=== PATIENT | female | born 1930 | race Caucasian/White ===

== ENCOUNTER 2018-02-17 16:52 | Emergency (ER) | payer MEDICARE, MEDICAID ==
[~2018-02-17] VITALS: Ht 157.5 cm; Wt 40.8 kg
[2018-02-17 16:55] VITALS: BP 132/98
--- NOTE | 2018-02-17 17:19 | Emergency Room Report ---
History of Present Illness General Chief Complaint: Upper Extremity Injury Present Illness HPI 87-year-old female presents to the emergency department brought by ambulance from [facility] facility for left wrist pain status post fall from bed. Patient denies hitting her head she states that she fell yesterday as well. Patient reports minimal pain rated at 2/10 in severity. exacerbated with palpation. She reports some swelling to the left wrist. She states that she typically requires assistance with standing and ambulating as she does not have good balance. Denies CP, Palpitations, paresthesias, or a sudden severe headache. Allergies: Coded Allergies: No Known Allergies (Unverified , 02/17/18) Patient History Past Medical History: see triage record Past Surgical History: none Pertinent Family History: none Now: No Reviewed Nursing Documentation: PMH: Agreed; PSxH: Agreed Review of Systems All Other Systems: negative except mentioned in HPI Physical Exam Vital Signs Date Time Temp Pulse Resp B/P (MAP) Pulse Ox O2 Delivery O2 Flow Rate FiO2 02/17/18 16:43 97.8 89 20 132/98 99 97.9 02/17/18 16:55 Room Air Sp02 EP Interpretation: reviewed, normal General Appearance: no apparent distress, alert, GCS 15, non-toxic Head: normocephalic, atraumatic Eyes: bilateral eye normal inspection, bilateral eye PERRL ENT: hearing grossly normal, normal voice Neck: full range of motion Respiratory: chest non-tender, lungs clear, normal breath sounds, speaking full sentences Cardiovascular #1: regular rate, rhythm, no edema, normal capillary refill Cardiovascular #2: 2+ radial (R), 2+ radial (L) Gastrointestinal: non tender, soft Musculoskeletal: back normal, digits/nails normal, normal range of motion, tender - TTP , minimal to the dorsilateral Left wrist, bruising noted, mild swelling. Neurologic: alert, oriented x3, responsive, motor strength/tone normal, sensory intact, speech normal, grossly normal Psychiatric: judgement/insight normal, other - memory impaired. Skin: normal color, no rash, warm/dry, well hydrated, other - bruising to the left wrist. Medical Decision Making PA Attestation Dr. sweet is my supervising Physician whom patient management has been discussed with. Diagnostic Impression: Primary Impression: Left wrist sprain Qualified Codes: S63.502A - Unspecified sprain of left wrist, initial encounter ER Course 87-year-old female presents to the emergency department brought by ambulance from [facility] facility for left wrist pain status post fall from bed. Patient denies hitting her head she states that she fell yesterday as well. Patient reports minimal pain rated at 2/10 in severity. exacerbated with palpation. She reports some swelling to the left wrist. She states that she typically requires assistance with standing and ambulating as she does not have good balance. Denies CP, Palpitations, paresthesias, or a sudden severe headache. Ddx considered but are not limited to Fracture, dislocation, contusion, Sprain/ Strain/Spasm, Head injury, Cardiac pathology. Vital signs: are WNL, pt. is afebrile H&PE are most consistent with musculoskeletal injury will perform imaging to r/ o fractures/dislocations. - no evidence to suggest head injury at this time, pt. answering questions Appropriately and no signs of head trauma on exam ORDERS: - X-ray Left wrist 3 - negative for fx, Dislocation, or significant soft tissue injury, per preliminary read in ED, and signed by LAMONTE Hogan, my supervising physician has reviewed, and agrees with my interpretation. ED INTERVENTIONS: - Ice to affected area. pt. denies pain. - Left Wrist Splint applied by molding technician. Pt. remains neurovascularly intact. DISCHARGE: At this time pt. is stable for d/c to Back to SNF. Will provide printed patient care instructions, any necessary prescriptions, and facilitate transport. Care plan and follow up instructions have been discussed with the patient prior to discharge. Other X-Ray Diagnostic Results Other X-Ray Diagnostic Results : X-Ray ordered: Left Wrist # of Views/Limited Vs Complete: 3 View Indication: Pain EP Interpretation: Yes LAMONTE Xray: Interpretation reviewed, by supervising MD, and agrees with findings. Interpretation: no dislocation, no soft tissue swelling, no fractures Impression: No acute disease Electronically Signed by: Yarelis Hogan PA-C Last Vital Signs Date Time Temp Pulse Resp B/P (MAP) Pulse Ox O2 Delivery O2 Flow Rate FiO2 02/17/18 16:55 90 20 132/98 97 Room Air 02/17/18 16:43 97.8 97.9 Disposition: XFER SNF Condition: Stable Scripts Acetaminophen* (TYLENOL EXTRA STRENGTH*) 500 Mg Tablet 500 MG ORAL Q6H, #20 TAB 0 Refills Prov: Yarelis Hogan 02/17/18 Patient Instructions: Wrist Sprain Additional Instructions: Take medications as directed. X-rays performed were negative for acute fractures. Fall precautions Follow up with a Primary Care Provider in 3-5 days, even if your symptoms have resolved. Return sooner to ED if new symptoms occur, or current symptoms become worse. - Please note that this Emergency Department Report was dictated using [employer] algorithm scientist technology software, occasionally this can lead to erroneous entry secondary to interpretation by the dictation equipment. Yarelis Hogan Feb 17, 2018 17:19
--- NOTE | 2018-02-17 19:03 | Diagnostic Imaging Report ---
EXAM: XR Left Wrist Complete, 3 Views CLINICAL HISTORY: PAIN, status post fall TECHNIQUE: Frontal, lateral and oblique views of the left wrist. COMPARISON: No relevant prior studies available. FINDINGS: Bones/joints: Osteopenia is noted which decreases the sensitivity for detection of fracture. There is no definite plain film evidence for acute fracture or dislocation. Increased density is projected at the radiocarpal and ulnar carpal joints is likely related to chondrocalcinosis. Degenerative changes of the first carpal metacarpal joint and scaphotrapeziotrapezoid joint. Degenerative changes are also noted of the radiocarpal joint. Soft tissues: Unremarkable. No radiopaque foreign body. IMPRESSION: Osteopenia. No definite plain film evidence for acute fracture or dislocation, however, evaluation for fractures limited due to osteopenia.. If there is continued clinical concern for fracture, consider CT or MRI for further evaluation. Degenerative changes of the wrist as described above. Chondrocalcinosis as described above.
[2018-02-17] MEDS ORDERED: TYLENOL EXTRA500 MG ORAL (20:15)
[2018-02-17 20:21] VITALS: BP 121/81
== END 2018-02-17 20:23 ==
LOC: EDBD 16:52 → EMR 17:20
DX: S63.502A Unspecified sprain of left wrist, initial encounter (principal); W06.XXXA Fall from bed, initial encounter; Y92.122 Bedroom in nursing home as the place of occurrence of the external cause
CPT/HCPCS: 99284

== ENCOUNTER 2019-02-23 17:41 | Emergency (ER) | payer MEDICARE, OTHER ==
[~2019-02-23] VITALS: Ht 157.5 cm; Wt 56.7 kg
[~2019-02-23 17:41] MED LIST: TYLENOL EXTRA500 MG ORAL
--- NOTE | 2019-02-23 17:42 | NUR ---
ED Nurse Note: PT FROM [facility] WAS BROUGHT IN BY AMBULANCE DUE TO FALL INCIDENT HAPPENED THIS AFTERNOON. PER PT SHE WAS TRYING TO GET A NEWS PAPER THEN LOST HER BALANCE AND FELL FROM HER WHEELCAHIR. PT AQCUIRED A 1 INCH LACERATION ON HER FOREHEAD IWTH DRIED BLOOD. NO ACTIVE BLEEDING AT THIS TIME. DENIES LOC. PT IS AAO X4, FOLLOWS COMMANDS, NO RESPIRATORY DISTRESS. ALSO NOTED SMALL ABRASIONS ON HER RLE.
[2019-02-23 17:46] VITALS: BP 133/73
--- NOTE | 2019-02-23 18:23 | NUR ---
ED Nurse Note: RN CLEANSED PT'S LACERATION WITH SALINE AND HYDROGEN PEROXIDE THEN APPLIED BETADINE. COVERED WITH DRY DRESSING AND SECURED WITH TAPE.
--- NOTE | 2019-02-23 18:30 | NUR ---
ED Nurse Note: PT TAKEN TO CT VIA [facility]. VSS.
[2019-02-23 18:34] LABS: BASOPHILS % (AUTO) 1.7 % (0.0-2.0); EOSINOPHILS % (AUTO) 0.9 % (0.0-3.0); HEMATOCRIT 38.3 % (37.0-47.0); HEMOGLOBIN 12.7 G/DL (12.0-16.0); LYMPHOCYTES % (AUTO) 21.5 % (20.0-45.0); MEAN CORPUSCULAR VOLUME 94 FL (80-99); NEUTROPHILS % (AUTO) 70.8 % (45.0-75.0); PLATELET COUNT 206 K/UL (150-450); RED BLOOD COUNT 4.06 M/UL (4.20-5.40); RED CELL DISTRIBUTION WIDTH 13.9 % (11.6-14.8)
--- NOTE | 2019-02-23 18:58 | Diagnostic Imaging Report ---
EXAM: CT Head Without Intravenous Contrast CLINICAL HISTORY: PAIN TECHNIQUE: Axial computed tomography images of the head/brain without intravenous contrast. CTDI is 70.38 mGy and DLP is 1435.68 mGy-cm. One or more of the following dose reduction techniques were used: automated exposure control, adjustment of the mA and/or kV according to patient size, use of iterative reconstruction technique. COMPARISON: none FINDINGS: Brain: Moderate generalized atrophy. Periventricular white matter low- density compatible chronic ischemic microvascular change. No hemorrhage. Ventricles: Unremarkable. No ventriculomegaly. Bones/joints: Unremarkable. No acute fracture. Soft tissues: Unremarkable. Sinuses: Unremarkable as visualized. No acute sinusitis. Mastoid air cells: Unremarkable as visualized. No mastoid effusion. IMPRESSION: No acute intracranial pathology.
[2019-02-23 19:05] LABS: ANION GAP 7 mmol/L (5-15); BLOOD UREA NITROGEN 17 mg/dL (7-18); CALCIUM 9.4 MG/DL (8.5-10.1); CARBON DIOXIDE 26 MMOL/L (21-32); CHLORIDE 104 MMOL/L (98-107); CREATININE 0.5 MG/DL (0.55-1.30); POTASSIUM 3.9 MMOL/L (3.5-5.1); SODIUM 137 MMOL/L (136-145)
--- NOTE | 2019-02-23 19:08 | NUR ---
HAND-OFF: Report given to KHADIJAH STEVEN.
[2019-02-23 19:09] LABS: ALANINE AMINOTRANSFERASE 15 U/L (12-78); ALBUMIN 3.3 G/DL (3.4-5.0); ALKALINE PHOSPHATASE 94 U/L (46-116); ASPARTATE AMINO TRANSFERASE 27 U/L (15-37); BILIRUBIN,TOTAL 0.8 MG/DL (0.2-1.0)
--- NOTE | 2019-02-23 19:16 | Diagnostic Imaging Report ---
EXAM: CT Cervical Spine Without Intravenous Contrast CLINICAL HISTORY: PAIN TECHNIQUE: Axial computed tomography images of the cervical spine without intravenous contrast. CTDI is 9.06 mGy and DLP is 1605 mGy-cm. One or more of the following dose reduction techniques were used: automated exposure control, adjustment of the mA and/or kV according to patient size, use of iterative reconstruction technique. COMPARISON: none FINDINGS: Vertebrae: Alignment notable for subtle grade 1 anterolisthesis of 1-2 mm of C5 on C6 with normal cervical lordosis preserved. The bones are demineralized but no acute fracture or aggressive appearing osseous lesions are seen. The discs show endplate degenerative changes throughout the cervical spine with narrowing but this is most conspicuous at C3-C4, C4-C5 and C5-C6. Uncovertebral hypertrophy is also present as well, contributing some degree of central canal flattening and foraminal narrowing. Predominantly left-sided facet hypertrophic changes are present at C4-C5 through C6-C7 and right-sided facet hypertrophy is present primarily at C6-C7. Epidural space: The extraspinal soft tissues reveal no thickening. There is no evidence of an epidural hematoma. There is some thickening of the atlantodens ligaments. Discs/spinal canal/neural foramina: See findings above and below. Soft tissues: The soft tissues reveal mild biapical pleural and parenchymal scarring, as well as vascular degenerative changes with calcifications in bilateral carotid bulbs. IMPRESSION: Multilevel cervical spinal degenerative spondylosis without fracture or aggressive appearing osseous lesion. There is probable multilevel foraminal narrowing due to degenerative changes. No high-grade bony central canal stenosis noted
--- NOTE | 2019-02-23 20:09 | NUR ---
Spoke with Kurt at [facility], aware of patient going back. Spoke with John at [facility] 30 min-[phone]
[2019-02-23 20:56] VITALS: BP 133/73
--- NOTE | 2019-02-23 20:58 | NUR ---
ER DISCHARGE NOTE: Patient is cleared to be discharged per ERMD, pt is aox4, on room air, with stable vital signs. pt was given dc and prescription instructions, pt was able to verbalize understanding, pt id band and iv site removed without complications. pt was transfered back to [facility] via [id number], pt took all belongings.
--- NOTE | 2019-02-23 23:05 | Emergency Room Report ---
History of Present Illness General Chief Complaint: Multiple Trauma/Fall Source: Medical Record Present Illness HPI Patient is an 88-year-old female who presented after a fall at her facility. Patient had recent fall from standing. She reports having lost her balance. She denies loss of consciousness. Patient was noted to have forehead injury. Patient states she is previously healthy. Allergies: Coded Allergies: No Known Allergies (Unverified , 02/17/18) Patient History Reviewed Nursing Documentation: PMH: Agreed; PSxH: Agreed Nursing Documentation-PMH Hx Hypertension: Yes Review of Systems All Other Systems: negative except mentioned in HPI Physical Exam Vital Signs Date Time Temp Pulse Resp B/P (MAP) Pulse Ox O2 Delivery O2 Flow Rate FiO2 02/23/19 17:32 98.8 88 16 136/72 (93) 98 Room Air Sp02 EP Interpretation: reviewed, normal General Appearance: normal inspection, well appearing, no apparent distress, alert Head: atraumatic ENT: normal ENT inspection, hearing grossly normal, normal voice Neck: normal inspection, full range of motion, supple, no bony tend Respiratory: normal inspection, lungs clear, normal breath sounds, no respiratory distress, no retraction, no wheezing Cardiovascular #1: regular rate, rhythm, no edema Gastrointestinal: normal inspection, normal bowel sounds, non tender, soft, no guarding, no hernia Genitourinary: no CVA tenderness Musculoskeletal: normal inspection, back normal, normal range of motion Neurologic: normal inspection, alert, responsive, speech normal Psychiatric: normal inspection, judgement/insight normal, mood/affect normal Skin: normal color, no rash, laceration - Forehead laceration 1 cm Procedures Laceration/Wound Repair Laceration/Wound Repair : Consent: Emergent Wound Location: face Wound's Depth, Shape: superficial Wound Length (cm): 1 Irrigated w/ Saline (ccs): 10 Wound Debrided: minimal Wound Repaired With: Dermabond Patient Tolerated: Well Complications: None Medical Decision Making Diagnostic Impression: Primary Impression: Fall Additional Impressions: Forehead contusion Forehead laceration ER Course Patient presented for fall. Differential diagnosis include was not limited to intracranial hemorrhage, fracture, contusion among others. Because of complexity of patient's case laboratory testing and imaging studies were ordered. CT imaging of the head and cervical spine showed no evidence of acute fracture. Patient was noted to have some chronic degenerative changes to her spine. Patient's laceration closed with Dermabond. Patient appears to be stable for discharge to her facility. Patient was to return if any worsening condition or other concerns. She was sent back to her facility via BLS ambulance. Labs Test 02/23/19 18:15 White Blood Count 6.0 K/UL (4.8-10.8) Red Blood Count 4.06 M/UL (4.20-5.40) Hemoglobin 12.7 G/DL (12.0-16.0) Hematocrit 38.3 % (37.0-47.0) Mean Corpuscular Volume 94 FL (80-99) Mean Corpuscular Hemoglobin 31.3 PG (27.0-31.0) Mean Corpuscular Hemoglobin Concent 33.1 G/DL (32.0-36.0) Red Cell Distribution Width 13.9 % (11.6-14.8) Platelet Count 206 K/UL (150-450) Mean Platelet Volume 5.4 FL (6.5-10.1) Neutrophils (%) (Auto) 70.8 % (45.0-75.0) Lymphocytes (%) (Auto) 21.5 % (20.0-45.0) Monocytes (%) (Auto) 5.0 % (1.0-10.0) Eosinophils (%) (Auto) 0.9 % (0.0-3.0) Basophils (%) (Auto) 1.7 % (0.0-2.0) Prothrombin Time 10.8 SEC (9.30-11.50) Prothromb Time International Ratio 1.0 (0.9-1.1) Activated Partial Thromboplast Time 24 SEC (23-33) Sodium Level 137 MMOL/L (136-145) Potassium Level 3.9 MMOL/L (3.5-5.1) Chloride Level 104 MMOL/L (98-107) Carbon Dioxide Level 26 MMOL/L (21-32) Anion Gap 7 mmol/L (5-15) Blood Urea Nitrogen 17 mg/dL (7-18) Creatinine 0.5 MG/DL (0.55-1.30) Estimat Glomerular Filtration Rate mL/min (>60) Glucose Level 100 MG/DL (74-106) Calcium Level 9.4 MG/DL (8.5-10.1) Total Bilirubin 0.8 MG/DL (0.2-1.0) Aspartate Amino Transf (AST/SGOT) 27 U/L (15-37) Alanine Aminotransferase (ALT/SGPT) 15 U/L (12-78) Alkaline Phosphatase 94 U/L (46-116) Troponin I 0.000 ng/mL (0.000-0.056) Total Protein 6.6 G/DL (6.4-8.2) Albumin 3.3 G/DL (3.4-5.0) Globulin 3.3 g/dL Albumin/Globulin Ratio 1.0 (1.0-2.7) Last Vital Signs Date Time Temp Pulse Resp B/P (MAP) Pulse Ox O2 Delivery O2 Flow Rate FiO2 02/23/19 20:56 98.5 78 15 133/73 98 Room Air Status: improved Disposition: HOME, SELF-CARE Condition: Stable Patient Instructions: Head Injury, Adult, Tissue Adhesive Wound Care, Easy-to- Read Trenton Morales MD Feb 23, 2019 23:05
--- NOTE | 2019-02-26 15:06 | Cardiology Report ---
APPROVED REPORT EKG Measurement Heart [id number] Sinus rhythm with marked sinus arrhythmia with 1st degree AV block Possible Left atrial enlargement Borderline ECG
== END 2019-02-23 20:45 | disposition home or self-care (01) ==
LOC: EDBD 17:41 → EMR 19:59
DX: S01.81XA Laceration without foreign body of other part of head, initial encounter (principal); W19.XXXA Unspecified fall, initial encounter; I10 Essential (primary) hypertension
CPT/HCPCS: 36415; 70450; 72125; 80053; 84484; 85025; 85610; 85730; 93005; 99284